=== PATIENT | female | born 1985 | race Caucasian/White ===

== ENCOUNTER 2017-07-28 17:33 | Emergency (ER) | payer OTHER ==
[2017-07-28 17:42] VITALS: O2SAT 98
--- NOTE | 2017-07-28 18:30 | EDPHY ---
General Narrative: CHIEF COMPLAINT: Right arm tingling and pain, right leg tingling and pain HISTORY OF PRESENT ILLNESS: Patient complains of 2 week history of numbness, tingling and pain in the right upper extremity. This was gradual onset. Symptoms are intermittent and the pain is described as an ache. this morning the right arm was reportedly "numb, " but she reports just tingling. The tingling is only only on the anterior portion of the arm. Symptoms in the right leg started earlier today. They have nearly resolved. She has difficulty describing this and unable to quantify it. She has chronic headaches, chronic neck pain and chronic low back pain. He has no trauma or injury to the back. The weakness of the extremities. No redness or warmth. No headache at this time. She has no neck pain or stiffness. She has no chest pain or shortness of breath. No abdominal complaints. She is concerned because the symptoms are similar to when she had a DVT in 2013 in the right axillary vein. She has had the dry needling performed last week with no change in her symptoms. She has not tried any other medications or modalities to improve this. No other associated complaints or modifying factors. REVIEW OF SYSTEMS: Ten systems reviewed and are negative unless otherwise noted in the HPI PCP: None established SPECIALISTS: None PAST MEDICAL HISTORY: Right axillary DVT in 2013. Chronic headaches. Chronic neck and back pain. Bipolar disorder PAST SURGICAL HISTORY: None SOCIAL HISTORY: Nonsmoker. Occasional alcohol. No drug use. 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 FAMILY HISTORY: Noncontributory EXAMINATION General Appearance: Alert, no distress Head: normocephalic, atraumatic Eyes: Pupils equal and round, no conjunctival pallor or injection ENT, Mouth: Mucous membranes moist. Uvula midline. Airway is widely patent Neck: Normal inspection, supple, non-tender. No meningismus or rigidity. Respiratory: Lungs are clear to auscultation no wheezing, rhonchi or crackles Cardiovascular: Regular rate and rhythm. No murmur Gastrointestinal: Abdomen is soft and nontender Back: non-tender, no bony abnormalities Neurological: GCS 15. Cranial nerves 2-12 grossly intact. A&O, nonfocal, normal gait. Sensory is symmetric in the arms and legs Strength is symmetric in all 4 limbs. No pronator drift. No dysmetria. Symmetric patellar reflexes. NIH stroke scale is 0 Skin: Warm and dry, no rash no petechiae or purpura Extremities: Minimal tenderness of the right brachium and right calf. No erythema or edema. Negative Homans. No pain with passive dorsiflexion. No evidence of DVT. Psychiatric: Mood and affect normal DIFFERENTIAL DIAGNOSES: Including but not limited to cervical radiculopathy, lumbar radiculopathy, DVT, peripheral neuropathy, TIA, CVA MDM: 6:30 p.m. Paresthesia of the arm for 2 weeks and short duration of paresthesia in the right leg. The symptoms wax and wane and do not appear to be progressing. She has no focal deficits and no positive findings on neuro examination. Given that this feels like previous DVT to the patient I have ordered ultrasounds of the right arm and right leg. Low clinical suspicion for this. Laboratory studies been ordered. I have discussed the case with Dr. Conley. Given the patient has not ever had a CT scan of the head despite her history of headaches, he recommends CT scan without contrast. 6:40 p.m. Patient re-evaluated. I discussed this plan with her and she is agreeable to this. 7:05 p.m. Laboratory studies are all within normal limits. CT scan pending. Ultrasound pending. She is resting comfortably in no acute distress. 7:40 p.m. Notified by radiologist Dr. Burnett. Ultrasound of the right upper extremity and right lower extremity revealed no DVT. 8:05 p.m. Notified by radiologist Dr. Burnett. CT scan of the head without contrast is negative for acute finding. 8:15 p.m. Patient re-evaluated. She remains well-appearing, nontoxic and in no acute distress. I informed her of the negative ultrasound and CT findings. I informed her of the normal laboratory studies. I do not feel she exhibits any signs of CVA or TIA. I do not have an etiology for her paresthesia, but the duration of these and the non dermatomal distributions suggest that these are likely peripheral. After lengthy discussion with Dr. Conley and with the patient regarding further testing here versus outpatient follow-up. I did offer CT angiography of the head and neck and/or MRI, but the patient is comfortable going home for outpatient follow-up. Her primary concern was DVT of the right arm and this has been ruled out. I do feel she is stable for discharge home with outpatient follow-up is reasonable. We discussed at length ED precautions that would warrant return to the emergency department for further workup including weakness, headache, numbness, saddle anesthesia, incontinence of bowel or bladder, retention of bowel or bladder. She is comfortable this plan and she is discharged home stable condition. SUPERVISION: Patient was independently examined, but I discussed the case with my secondary supervising physician Dr. Conley Patient is not a tPA candidate as she has no evidence of stroke or TIA by examination or history. Additionally, were she to be diagnosed with CVA or TIA , symptoms have been present for 2 weeks. - Diagnostics Imaging Results: Imaging Impressions Extremity Venous Study 07/28/17 18:31 Impression: No evidence of vein thrombosis in the right arm. Extremity Venous Study 07/28/17 18:31 Impression: No deep venous thrombosis right leg. Results called and discussed with Ras Foley PA-C at 07/28/2017 19:38. Head CT 07/28/17 18:41 Impression: Normal. Results called and discussed with Ras Foley at 07/28/2017 20:07. - History Smoking Status: Never smoked - Objective Vital Signs: Initial Vital Signs Temperature (C) 97.5 F 07/28/17 17:36 Heart Rate 75 07/28/17 17:36 Respiratory Rate 16 07/28/17 17:36 Blood Pressure 130/58 H 07/28/17 17:36 O2 Sat (%) 98 07/28/17 17:36 O2 Delivery Mode Room Air Allergies/Adverse Reactions: No Known Allergies Allergy (Unverified 07/28/17 17:42) Home Medications: Medication Instructions Recorded Excedrin Tablet (*) 07/28/17 LaMICtal 07/28/17 Sharobel 07/28/17 Laboratory Results: Laboratory Results 07/28/17 18:34 07/28/17 18:34 07/28/17 07/28/17 07/28/17 18:34 18:34 18:34 WBC 10.05 10^3/uL H 10^3/uL (3.80-9.50) RBC 4.69 10^6/uL 10^6/uL (4.18-5.33) Hgb 14.7 g/dL g/dL (12.6-16.3) Hct 41.5 % % (38.0-47.0) MCV 88.5 fL fL (81.5-99.8) MCH 31.3 pg pg (27.9-34.1) MCHC 35.4 g/dL g/dL (32.4-36.7) RDW 13.6 % % (11.5-15.2) Plt Count 282 10^3/uL 10^3/uL (150-400) MPV 8.8 fL fL (8.7-11.7) Neut % (Auto) 69.4 % % (39.3-74.2) Lymph % (Auto) 22.2 % % (15.0-45.0) [place] % (Auto) 6.3 % % (4.5-13.0) Eos % (Auto) 1.2 % % (0.6-7.6) Baso % (Auto) 0.6 % % (0.3-1.7) Nucleat RBC Rel Count 0.0 % % (0.0-0.2) Absolute Neuts (auto) 6.98 10^3/uL H 10^3/uL (1.70-6.50) Absolute Lymphs (auto) 2.23 10^3/uL 10^3/uL (1.00-3.00) Absolute Monos (auto) 0.63 10^3/uL 10^3/uL (0.30-0.80) Absolute Eos (auto) 0.12 10^3/uL 10^3/uL (0.03-0.40) Absolute Basos (auto) 0.06 10^3/uL 10^3/uL (0.02-0.10) Absolute Nucleated RBC 0.00 10^3/uL 10^3/uL (0-0.01) Immature Gran % 0.3 % % (0.0-1.1) Immature Gran # 0.03 10^3/uL 10^3/uL (0.00-0.10) Sodium 138 mEq/L mEq/L (134-144) Potassium 3.9 mEq/L mEq/L (3.5-5.2) Chloride 100 mEq/L mEq/L (97-110) Carbon Dioxide 24 mEq/l mEq/l (22-31) Anion Gap 14 mEq/L mEq/L (8-16) BUN 11 mg/dL mg/dL (7-23) Creatinine 0.7 mg/dL mg/dL (0.6-1.0) Estimated GFR > 60 Glucose 107 mg/dL H mg/dL (70-100) Calcium 9.8 mg/dL mg/dL (8.5-10.4) Beta HCG, Qual NEGATIVE Departure - Departure Disposition: Home, Routine, Self-Care Clinical Impression: Paresthesia Condition: Good Instructions: Paresthesia (ED), Lumbar Radiculopathy (ED), Cervical Radiculopathy (ED) Additional Instructions: 1. Contact the on-call primary care physician as provided and discussed 2. Contact the on-call neurologist as provided and discussed 3. ED precautions as discussed Referrals: Neha Garcia MD [Medical Doctor] - As per Instructions Shelton Dubose MD [Medical Doctor] - As per Instructions
[2017-07-28 18:45] LABS: PLATELET COUNT 282 10^3/uL (150-400)
[2017-07-28 20:34] VITALS: BP 113/66; PULSE 61; RESP 18; TEMP 98.6
== END 2017-07-28 20:34 | disposition home or self-care (01) ==
DX: R20.2 Paresthesia of skin (principal)